=== PATIENT | female | born 1995 | race Caucasian/White ===

== ENCOUNTER 2022-03-06 18:23 | Emergency (ER) | payer SELFPAY | END 2022-03-06 19:56 | disposition home or self-care (01) | LOC: MW.ED 18:23 | DX: L55.9 Sunburn, unspecified (principal) | CPT/HCPCS: 99282 ==

== ENCOUNTER 2024-07-06 07:13 | Emergency (ER) | payer BC ==
[2024-07-06 08:44] LABS: HEMATOCRIT 35.5 % (37.0-47.0); MEAN CORPUSCULAR HEMOGLOBIN 30.1 pg (28.0-32.0); MEAN CORPUSCULAR HGB CONC 36.6 g/dL (32.0-36.0); MEAN CORPUSCULAR VOLUME 82.2 fL (83.0-99.0); MEAN PLATELET VOLUME 10.3 fL (9.4-12.3); PLATELET COUNT,PLT 285 K/uL (150-400); RED BLOOD CELL COUNT 4.32 M/uL (4.10-5.30); WHITE BLOOD CELL COUNT,WBC 15.26 K/uL (3.9-11.3)
[2024-07-06 08:46] LABS: BILIRUBIN,URINE NEGATIVE (NEGATIVE); COLOR,URINE YELLOW; GLUCOSE,URINE NEGATIVE (NEGATIVE); KETONES,URINE NEGATIVE (NEGATIVE); LEUKOCYTE ESTERASE,URINE SMALL (NEGATIVE); NITRITE,URINE POSITIVE (NEGATIVE); OCCULT BLOOD,URINE LARGE (NEGATIVE); PROTEIN,URINE NEGATIVE (NEGATIVE); UROBILINOGEN,URINE 0.2 EU/dL (<2.0)
[2024-07-06 08:55] LABS: APPEARANCE,URINE CLOUDY
[2024-07-06 09:06] LABS: BACTERIA,URINE 1+ (NEGATIVE); EPITHELIAL CELLS,URINE OCCASIONAL (NONE-FEW); RBC,URINE 30-40 (0-2/HPF); WBC,URINE 20-30 (0-5/HPF)
== END 2024-07-06 09:51 | disposition home or self-care (01) ==
LOC: MW.ED 07:13
DX: O20.0 Threatened abortion (principal); O23.12 Infections of bladder in pregnancy, second trimester; N30.01 Acute cystitis with hematuria; Z3A.13 13 weeks gestation of pregnancy
CPT/HCPCS: 36415; 76805; 76805-26; 81001; 84702; 85027; 86900; 86901; 87086; 99284

== ENCOUNTER 2024-07-08 17:51 | Emergency (ER) | payer BC ==
[2024-07-08] MEDS: Sodium Chloride 0.9% 1,000 ML IV ONE ×2 (18:33→23:31)
[2024-07-08 18:39] LABS: BASOPHILS ABSOLUTE AUTO 0.02 K/uL (0.00-0.20); BASOPHILS PERCENT AUTO 0.1 % (0.0-1.0); EOSINOPHILS ABSOLUTE AUTO 0.01 K/uL (0.00-0.45); EOSINOPHILS PERCENT AUTO 0.1 % (0.0-6.0); HEMATOCRIT 37.3 % (37.0-47.0); HEMOGLOBIN 13.4 g/dL (12.0-16.0); IMMATURE GRAN ABSOLUTE AUTO 0.06 K/uL (0.00-0.05); IMMATURE GRAN PERCENT AUTO 0.4 % (0.0-0.4); LYMPHOCYTES ABSOLUTE AUTO 0.41 K/uL (1.00-4.80); LYMPHOCYTES PERCENT AUTO 2.6 % (24.0-44.0); MEAN CORPUSCULAR HEMOGLOBIN 30.2 pg (28.0-32.0); MEAN CORPUSCULAR HGB CONC 35.9 g/dL (32.0-36.0); MEAN PLATELET VOLUME 10.4 fL (9.4-12.3); MONOCYTES ABSOLUTE AUTO 0.58 K/uL (0.00-0.80); MONOCYTES PERCENT AUTO 3.7 % (0.0-8.0); NEUTROPHILS ABSOLUTE AUTO 14.63 K/uL (1.80-7.70); NEUTROPHILS PERCENT AUTO 93.1 % (41.0-71.0); PLATELET COUNT,PLT 248 K/uL (150-400); RED BLOOD CELL COUNT 4.44 M/uL (4.10-5.30); WHITE BLOOD CELL COUNT,WBC 15.71 K/uL (3.9-11.3)
[2024-07-08] MEDS: Ondansetron 4 MG/2 ML SDV IVPUSH ONE ×2 (18:40→23:16)
[2024-07-08 19:24] LABS: A/G RATIO 0.9 (0.9-1.6); ALBUMIN 3.4 g/dL (3.4-5.0); BILIRUBIN TOTAL 0.4 mg/dL (0.2-1.0); CALCIUM 9.4 mg/dL (8.5-10.1); CREATININE 0.8 mg/dL (0.6-1.0); EST CRCL DRUG DOSING (CG) 83.54 mL/min; POTASSIUM,K 3.8 mmol/L (3.5-5.1); PROTEIN TOTAL,TP 7.4 g/dL (6.4-8.2)
[2024-07-08] MEDS: Alum Hydrox/Mag Hydrox/Simeth 15 ML, Metoclopramide 5 MG, Lidocaine 2% 5 ML PO ONE (20:00)
[2024-07-08 21:30] LABS: BILIRUBIN,URINE NEGATIVE (NEGATIVE); COLOR,URINE YELLOW; GLUCOSE,URINE NEGATIVE (NEGATIVE); KETONES,URINE 40 mg/dL (NEGATIVE); LEUKOCYTE ESTERASE,URINE NEGATIVE (NEGATIVE); NITRITE,URINE NEGATIVE (NEGATIVE); OCCULT BLOOD,URINE MODERATE (NEGATIVE); PH,URINE 5.5 (5.0-8.0); PROTEIN,URINE TRACE mg/dL (NEGATIVE); UROBILINOGEN,URINE 0.2 EU/dL (<2.0)
[2024-07-08 21:32] LABS: APPEARANCE,URINE HAZY
[2024-07-08 21:38] LABS: BACTERIA,URINE FEW (NEGATIVE); EPITHELIAL CELLS,URINE MODERATE (NONE-FEW); MUCUS,URINE LIGHT (NONE-MOD); RBC,URINE 0-3 (0-2/HPF); WBC,URINE 0-2 (0-5/HPF)
[2024-07-08] MEDS: Famotidine 20 MG/2 ML SDV IVPUSH ONE (23:16)
== END 2024-07-09 00:29 | disposition home or self-care (01) ==
LOC: MW.ED 17:51
DX: O99.612 Diseases of the digestive system complicating pregnancy, second trimester (principal); K52.9 Noninfective gastroenteritis and colitis, unspecified; Z75.8 Other problems related to medical facilities and other health care; J45.909 Unspecified asthma, uncomplicated; Z79.899 Other long term (current) drug therapy; Z3A.13 13 weeks gestation of pregnancy
CPT/HCPCS: 36415; 76705; 80053; 81001; 83690; 84702; 85025; 87428; 96361; 96374; 96375; 96376; 99284; A9270; J2405; J3490; J7030

== ENCOUNTER 2024-07-24 07:21 | Observation (INO) | payer BC ==
[2024-07-24] MEDS ORDERED: Sodium Chloride 0.9% 10 ML Syringe FLUSH PRN (07:48)
[2024-07-24 07:52] LABS: BASOPHILS ABSOLUTE AUTO 0.05 K/uL (0.00-0.20); BASOPHILS PERCENT AUTO 0.3 % (0.0-1.0); EOSINOPHILS ABSOLUTE AUTO 0.08 K/uL (0.00-0.45); EOSINOPHILS PERCENT AUTO 0.5 % (0.0-6.0); HEMATOCRIT 30.9 % (37.0-47.0); HEMOGLOBIN 10.9 g/dL (12.0-16.0); IMMATURE GRAN ABSOLUTE AUTO 0.18 K/uL (0.00-0.05); LYMPHOCYTES ABSOLUTE AUTO 2.24 K/uL (1.00-4.80); LYMPHOCYTES PERCENT AUTO 12.8 % (24.0-44.0); MEAN CORPUSCULAR HEMOGLOBIN 30.3 pg (28.0-32.0); MEAN CORPUSCULAR HGB CONC 35.3 g/dL (32.0-36.0); MEAN CORPUSCULAR VOLUME 85.8 fL (83.0-99.0); MEAN PLATELET VOLUME 10.7 fL (9.4-12.3); MONOCYTES ABSOLUTE AUTO 1.18 K/uL (0.00-0.80); MONOCYTES PERCENT AUTO 6.8 % (0.0-8.0); NEUTROPHILS ABSOLUTE AUTO 13.75 K/uL (1.80-7.70); NEUTROPHILS PERCENT AUTO 78.6 % (41.0-71.0); NRBC ABSOLUTE 0.03 K/uL (0.00-0.02); NRBC PERCENT 0.2 /100WBC (0.0-0.2); PLATELET COUNT,PLT 327 K/uL (150-400); WHITE BLOOD CELL COUNT,WBC 17.48 K/uL (3.9-11.3)
[2024-07-24 08:30] LABS: A/G RATIO 0.7 (0.9-1.6); ALBUMIN 2.9 g/dL (3.4-5.0); BILIRUBIN TOTAL 0.3 mg/dL (0.2-1.0); CALCIUM 9.5 mg/dL (8.5-10.1); CARBON DIOXIDE,CO2 22.5 mmol/L (21.0-32.0); CREATININE 0.6 mg/dL (0.6-1.0); EST CRCL DRUG DOSING (CG) 111.39 mL/min; POTASSIUM,K 3.9 mmol/L (3.5-5.1); PROTEIN TOTAL,TP 7.3 g/dL (6.4-8.2)
[2024-07-24] MEDS: Oxytocin/0.9 % Sodium Chloride 30 UNIT/500 ML BAG IV SCH (08:52)
[2024-07-24] MEDS ORDERED: Butorphanol 2 MG/ML SDV IVPUSH PRN (09:10)
[2024-07-24] MEDS ORDERED: Benzocaine/Menthol 20%-0.5% Spray 78 GM Cannister TOP PRN (09:11)
[2024-07-24] MEDS ORDERED: Lanolin 100% Cream 7 GM Tube TOP PRN (09:11)
[2024-07-24] MEDS ORDERED: oxyCODONE 5 MG Tab PO PRN (09:11)
[2024-07-24] MEDS ORDERED: Witch Hazel Medicated Pads 40/Jar TOP PRN (09:11)
[2024-07-24] MEDS ORDERED: Docusate Sodium 100 MG Cap PO PRN (09:11)
[2024-07-24] MEDS ORDERED: Ibuprofen 800 MG Tab PO PRN (09:11)
[2024-07-24 09:31] LABS: HEMOGLOBIN A1C 5.6 %
[2024-07-24 09:47] LABS: TSH ULTRASENSITIVE 0.61 uIU/mL (0.36-3.74)
[2024-07-24] MEDS: Sodium Chloride 0.9% 1,000 ML IV SCH (10:35)
[2024-07-24] MEDS ORDERED: propofoL 500 MG/50 ML 50 ML ONE (11:37)
[2024-07-24] MEDS ORDERED: dexmedeTOMIDine HCl 200 MCG/2 ML SDV ONE (11:43)
[2024-07-24] MEDS ORDERED: fentaNYL 100 MCG/2 ML SDV ONE (11:48)
[2024-07-24] MEDS ORDERED: Succinylcholine/Sod PF 100 MG/5 ML SYRINGE IV ONE (11:49)
[2024-07-24] MEDS ORDERED: ceFAZolin 2 GM Vial ONE (12:18)
[2024-07-24] MEDS ORDERED: Tranexamic Acid 1,000 MG/10 ML Vial ONE (12:21)
[2024-07-24] MEDS ORDERED: Propofol 200 MG/20 ML SDV ONE (12:26)
[2024-07-24] MEDS ORDERED: Dexamethasone 4 MG/ML 5 ML MDV ONE (12:31)
[2024-07-24] MEDS ORDERED: Ondansetron 4 MG/2 ML SDV ONE (12:31)
[2024-07-24] MEDS ORDERED: Methylergonovine 0.2 MG/1 ML Amp ONE (12:37)
[2024-07-24] MEDS: Ketorolac 30 MG/ML SDV IVPUSH ONE (15:13)
[2024-07-24] MEDS: Acetaminophen 500 MG Tab PO PRN (16:59)
[2024-07-24] MEDS: Azithromycin 500 MG in Sodium Chloride 0.9% 250 ML IV ONE (19:25)
[2024-07-29 09:07] LABS: PARVOVIRUS B19 IGG 0.32 IV (<=0.90); PARVOVIRUS B19 IGM 0.37 IV (<=0.89)
== END 2024-07-24 19:10 | disposition home or self-care (01) ==
LOC: MW.ED 07:21 → MW.OB 08:09
PROVIDERS: ADMIT Obstetrics & Gynecology; ATTEND Obstetrics & Gynecology
DX: O03.39 Incomplete spontaneous abortion with other complications (principal); O72.0 Third-stage hemorrhage; J45.909 Unspecified asthma, uncomplicated; Z79.899 Other long term (current) drug therapy
CPT/HCPCS: 36415; 59821; 80053; 81240; 83036; 84443; 85025; 85613; 85730; 86747; 86850; 86900; 86901; 99284; A9270; J0131; J0330; J0690; J1100; J1885; J2210; J2405; J2590; J2704; J3010; J7030; 96365; G0378

== ENCOUNTER 2024-07-26 09:15 | Emergency (ER) | payer BC ==
[2024-07-26] MEDS: Sodium Chloride 0.9% 1,000 ML IV ONE (09:50)
[2024-07-26 09:55] LABS: BASOPHILS ABSOLUTE AUTO 0.05 K/uL (0.00-0.20); BASOPHILS PERCENT AUTO 0.3 % (0.0-1.0); EOSINOPHILS PERCENT AUTO 0.6 % (0.0-6.0); HEMATOCRIT 25.6 % (37.0-47.0); IMMATURE GRAN ABSOLUTE AUTO 0.38 K/uL (0.00-0.05); IMMATURE GRAN PERCENT AUTO 2.3 % (0.0-0.4); LYMPHOCYTES ABSOLUTE AUTO 1.81 K/uL (1.00-4.80); LYMPHOCYTES PERCENT AUTO 10.8 % (24.0-44.0); MEAN CORPUSCULAR HEMOGLOBIN 30.2 pg (28.0-32.0); MEAN CORPUSCULAR HGB CONC 35.2 g/dL (32.0-36.0); MEAN CORPUSCULAR VOLUME 85.9 fL (83.0-99.0); MEAN PLATELET VOLUME 10.3 fL (9.4-12.3); MONOCYTES ABSOLUTE AUTO 1.21 K/uL (0.00-0.80); MONOCYTES PERCENT AUTO 7.2 % (0.0-8.0); NEUTROPHILS ABSOLUTE AUTO 13.16 K/uL (1.80-7.70); NEUTROPHILS PERCENT AUTO 78.8 % (41.0-71.0); NRBC ABSOLUTE 0.04 K/uL (0.00-0.02); NRBC PERCENT 0.2 /100WBC (0.0-0.2); PLATELET COUNT,PLT 325 K/uL (150-400); RED BLOOD CELL COUNT 2.98 M/uL (4.10-5.30); WHITE BLOOD CELL COUNT,WBC 16.71 K/uL (3.9-11.3)
[2024-07-26 10:16] LABS: A/G RATIO 0.7 (0.9-1.6); ALBUMIN 2.7 g/dL (3.4-5.0); BILIRUBIN TOTAL 0.3 mg/dL (0.2-1.0); CALCIUM 9.3 mg/dL (8.5-10.1); CARBON DIOXIDE,CO2 24.8 mmol/L (21.0-32.0); CREATININE 0.8 mg/dL (0.6-1.0); EST CRCL DRUG DOSING (CG) 83.54 mL/min; POTASSIUM,K 3.9 mmol/L (3.5-5.1); PROTEIN TOTAL,TP 6.8 g/dL (6.4-8.2)
== END 2024-07-26 11:04 | disposition home or self-care (01) ==
LOC: MW.ED 09:15
DX: O73.0 Retained placenta without hemorrhage (principal); Z88.8 Allergy status to other drugs, medicaments and biological substances; Z3A.15 15 weeks gestation of pregnancy
CPT/HCPCS: 36415; 80053; 85025; 96360; 99284; J7030

== ENCOUNTER 2024-09-08 07:32 | Day surgery (SDC) | payer BC ==
[2024-09-08] MEDS ORDERED: Dexamethasone 4 MG/ML 5 ML MDV ONE (07:33)
[2024-09-08] MEDS ORDERED: Ondansetron 4 MG/2 ML SDV ONE (07:33)
[2024-09-08] MEDS ORDERED: Lidocaine 1% 5 ML VIAL ONE (07:33)
[2024-09-08] MEDS ORDERED: Propofol 200 MG/20 ML SDV ONE (07:35)
[2024-09-08] MEDS ORDERED: Midazolam 1 MG/ML 2 ML SDV ONE (07:35)
[2024-09-08] MEDS ORDERED: fentaNYL 100 MCG/2 ML SDV ONE (07:35)
[2024-09-08] MEDS ORDERED: Naloxone 0.4 MG/ML SDV IVPUSH PRN (07:53)
[2024-09-08] MEDS ORDERED: fentaNYL 50 MCG/ML SDV IVPUSH PRN (07:53)
[2024-09-08] MEDS ORDERED: Morphine 2 MG/ML SYRINGE IVPUSH PRN (07:53)
[2024-09-08] MEDS ORDERED: Phenylephrine HCl In 0.9% NaCl 1 MG/10 ML Syringe IVPUSH PRN (07:53)
[2024-09-08] MEDS ORDERED: Ondansetron 4 MG/2 ML SDV IVPUSH PRN (07:53)
[2024-09-08] MEDS ORDERED: HYDROmorphone 1 MG/ML Syringe IVPUSH PRN (07:53)
[2024-09-08] MEDS ORDERED: Metoclopramide 10 MG/2 ML SDV IVPUSH PRN (07:53)
[2024-09-08] MEDS ORDERED: Albuterol 0.083% 2.5 MG/3 ML Neb Soln NEB PRN (07:53)
[2024-09-08 08:11] LABS: BASOPHILS ABSOLUTE AUTO 0.03 K/uL (0.00-0.20); BASOPHILS PERCENT AUTO 0.5 % (0.0-1.0); EOSINOPHILS ABSOLUTE AUTO 0.09 K/uL (0.00-0.45); EOSINOPHILS PERCENT AUTO 1.5 % (0.0-6.0); HEMATOCRIT 37.5 % (37.0-47.0); HEMOGLOBIN 12.5 g/dL (12.0-16.0); IMMATURE GRAN ABSOLUTE AUTO 0.05 K/uL (0.00-0.05); IMMATURE GRAN PERCENT AUTO 0.8 % (0.0-0.4); LYMPHOCYTES ABSOLUTE AUTO 2.04 K/uL (1.00-4.80); LYMPHOCYTES PERCENT AUTO 34.6 % (24.0-44.0); MEAN CORPUSCULAR HEMOGLOBIN 28.3 pg (28.0-32.0); MEAN CORPUSCULAR HGB CONC 33.3 g/dL (32.0-36.0); MEAN CORPUSCULAR VOLUME 84.8 fL (83.0-99.0); MEAN PLATELET VOLUME 10.1 fL (9.4-12.3); MONOCYTES ABSOLUTE AUTO 0.51 K/uL (0.00-0.80); MONOCYTES PERCENT AUTO 8.7 % (0.0-8.0); NEUTROPHILS ABSOLUTE AUTO 3.17 K/uL (1.80-7.70); NEUTROPHILS PERCENT AUTO 53.9 % (41.0-71.0); PLATELET COUNT,PLT 316 K/uL (150-400); RED BLOOD CELL COUNT 4.42 M/uL (4.10-5.30); WHITE BLOOD CELL COUNT,WBC 5.89 K/uL (3.9-11.3)
[2024-09-08] MEDS: Lactated Ringers 1,000 ML IV SCH (08:46)
[2024-09-08] MEDS ORDERED: ceFAZolin 2 GM Vial ONE (08:49)
[2024-09-08] MEDS ORDERED: Azithromycin 500 MG Vial ONE (08:57)
[2024-09-08] MEDS ORDERED: Ketorolac 30 MG/ML SDV ONE (09:03)
== END 2024-09-08 11:05 | disposition home or self-care (01) ==
LOC: MW.SDS 07:32
PROVIDERS: ATTEND Obstetrics & Gynecology
DX: O73.1 Retained portions of placenta and membranes, without hemorrhage (principal); J45.909 Unspecified asthma, uncomplicated; K21.9 Gastro-esophageal reflux disease without esophagitis; Z79.899 Other long term (current) drug therapy
CPT/HCPCS: 36415; 59812; 85025; J0131; J0456; J1100; J1885; J2003; J2250; J2704; J3010; J7120; 01965; J0690; J2405